=== PATIENT | female | born 1995 | race Caucasian/White ===

== ENCOUNTER → 2016-12-03 | Outpatient (CLI) | payer BC ==
[~2016-12-03] MED LIST: ALBU18002 INH; BCPILLS PO; FEXO1TAB46 PO; MOME200A INH
[2016-12-03 17:55] LABS: BLOOD UREA NITROGEN 9 mg/dl (7-18); CREATININE 0.86 mg/dl (0.60-1.20)
[2016-12-03 18:05] LABS: RHEUMATOID FACTOR < 10.0 U/mL (0-15)
[2016-12-03 18:17] LABS: LYME DISEASE AB IGG NEG (NEG); LYME DISEASE AB IGM EQUIVOCAL (NEG)
[2016-12-08 20:37] LABS: COLLECTION SAMPLE Venous; LEAD BLOOD <1 mcg/dL (<5); MICROSOMAL AB 43 IU/ML (<9); THYROXINE-BINDING GLOBULIN 25.3 mcg/mL (13.5-30.9); TSI <89 % baseline (<140)
[2016-12-09 23:57] LABS: 18KDIGG BAND NONREACTIVE (NONREACTIVE); 23KDIGG BAND NONREACTIVE (NONREACTIVE); 23KDIGM BAND NONREACTIVE (NONREACTIVE); 28KDIGG BAND NONREACTIVE (NONREACTIVE); 30KDIGG BAND NONREACTIVE (NONREACTIVE); 39KDIGG BAND NONREACTIVE (NONREACTIVE); 39KDIGM BAND NONREACTIVE (NONREACTIVE); 41KDIGG BAND REACTIVE (NONREACTIVE); 41KDIGM BAND NONREACTIVE (NONREACTIVE); 45KDIGG BAND NONREACTIVE (NONREACTIVE); 58KDIGG BAND NONREACTIVE (NONREACTIVE); 66KDIGG BAND REACTIVE (NONREACTIVE); 93KDIGG BAND NONREACTIVE (NONREACTIVE)
== END | disposition home or self-care (01) ==
LOC: C.LAB1850 16:05
PROVIDERS: ATTEND Otolaryngology
DX: Z01.812 Encounter for preprocedural laboratory examination (principal); D89.89 Other specified disorders involving the immune mechanism, not elsewhere classified; R49.0 Dysphonia; E03.9 Hypothyroidism, unspecified; A69.20 Lyme disease, unspecified; E78.2 Mixed hyperlipidemia; J38.01 Paralysis of vocal cords and larynx, unilateral; K21.0 Gastro-esophageal reflux disease with esophagitis; A52.8 Late syphilis, latent; E53.9 Vitamin B deficiency, unspecified

== ENCOUNTER → 2016-12-08 | Outpatient (CLI) | payer BC ==
--- NOTE | 2016-12-08 09:38 | DIAGNOSTIC IMAGING REPORT ---
THYROID ULTRASONOGRAPHY CLINICAL HISTORY: THYROID NEOPLASM, DYSPHONIA COMPARISON STUDY: No previous studies for comparison. FINDINGS: The right lobe of the thyroid measures 50 x 14 x 14 mm. The left lobe measures 45 x 13 x 13 mm. No focal thyroid masses were delineated. IMPRESSION: No thyroid nodules are visualized ultrasonographically. Electronically signed by: Edgardo Henao M.D. 12/08/2016 9:37 AM Dictated Date/Time: 12/08/2016 9:36 AM
== END | disposition home or self-care (01) ==
LOC: C.ULTR 09:20
PROVIDERS: ATTEND Otolaryngology
DX: R49.0 Dysphonia (principal); J38.01 Paralysis of vocal cords and larynx, unilateral; D44.0 Neoplasm of uncertain behavior of thyroid gland

== ENCOUNTER → 2016-12-09 | Outpatient (CLI) | payer BC ==
[2016-12-09 11:27] LABS: BLOOD UREA NITROGEN 8 mg/dl (7-18); CREATININE 0.97 mg/dl (0.60-1.20)
[2016-12-09 11:40] LABS: CHOLESTEROL 158 mg/dl (0-200); RHEUMATOID FACTOR < 10.0 U/mL (0-15); TRIGLYCERIDES 116 mg/dl (0-150)
[2016-12-09 12:06] LABS: LYME DISEASE AB IGG NEG (NEG)
[2016-12-09 13:22] LABS: LYME DISEASE AB IGM EQUIVOCAL (NEG)
[2016-12-11 06:36] LABS: COLLECTION SAMPLE Venous; LEAD BLOOD <1 mcg/dL (<5); MICROSOMAL AB 48 IU/ML (<9); THYROGLOBULIN 0.2 NG/ML (2.8-40.9)
[2016-12-15 17:24] LABS: 18KDIGG BAND NONREACTIVE (NONREACTIVE); 23KDIGG BAND NONREACTIVE (NONREACTIVE); 23KDIGM BAND NONREACTIVE (NONREACTIVE); 28KDIGG BAND NONREACTIVE (NONREACTIVE); 30KDIGG BAND NONREACTIVE (NONREACTIVE); 39KDIGG BAND NONREACTIVE (NONREACTIVE); 39KDIGM BAND NONREACTIVE (NONREACTIVE); 41KDIGG BAND REACTIVE (NONREACTIVE); 41KDIGM BAND NONREACTIVE (NONREACTIVE); 45KDIGG BAND NONREACTIVE (NONREACTIVE); 58KDIGG BAND NONREACTIVE (NONREACTIVE); 66KDIGG BAND REACTIVE (NONREACTIVE); 93KDIGG BAND NONREACTIVE (NONREACTIVE)
== END | disposition home or self-care (01) ==
LOC: C.LAB1850 09:47
PROVIDERS: ATTEND Otolaryngology
DX: D89.89 Other specified disorders involving the immune mechanism, not elsewhere classified (principal); R49.0 Dysphonia; E03.9 Hypothyroidism, unspecified; A69.20 Lyme disease, unspecified; E78.2 Mixed hyperlipidemia; J38.01 Paralysis of vocal cords and larynx, unilateral; Z01.812 Encounter for preprocedural laboratory examination; K21.0 Gastro-esophageal reflux disease with esophagitis; A52.8 Late syphilis, latent; E53.9 Vitamin B deficiency, unspecified

== ENCOUNTER → 2016-12-10 | Outpatient (CLI) | payer BC ==
[~2016-12-10] MED LIST changes: +GADAVIST IV PRN
--- NOTE | 2016-12-10 18:10 | DIAGNOSTIC IMAGING REPORT ---
MRI THE NECK WITHOUT A WITH GADOLINIUM CLINICAL HISTORY: THYROID NEOPLASM, DYSPHONIA focal cord mass COMPARISON STUDY: No previous studies for comparison. FINDINGS: Imaging was performed in the sagittal and axial planes. Imaging was performed before and after the administration of 6 cc of intravenous Gadavist. There are mildly prominent jugular digastric lymph nodes bilaterally. These measure up to 1 cm in short axis. There are mildly prominent tonsils. No salivary gland masses are visualized. No mucosal space masses are visualized. The reported vocal cord mass is not visualized on MRI imaging. Correlation with results of direct visualization is recommended. No thyroid masses are visualized. IMPRESSION: 1. No thyroid masses identified 2. No salivary gland masses identified 3. No mucosal space masses identified 4. Mildly prominent symmetric cervical lymph nodes likely reactive Electronically signed by: Edgardo Henao M.D. 12/10/2016 6:09 PM Dictated Date/Time: 12/10/2016 5:55 PM
--- NOTE | 2017-01-15 07:26 | CODING QUERY NO DIAGNOSIS ---
TREATMENT RENDERED WITHOUT A DIAGNOSIS To promote full compliance with coding requirements relating to patient care, physician participation is requested in all cases of collision repairer uncertainty. Please assist us with providing a diagnosis/symptom for the test(s) below: A diagnosis/symptom was not documented on your Order. A valid diagnosis/symptom is required to bill all insurances. Please remember that we are unable to code a diagnosis of rule out, probable, possible, questionable, or suspected. DOS: 12/10/16 Tests that require a diagnosis: * MRI SOFT TISSUE NECK COMBO DIAGNOSIS: Provider Signature: Date: Thank you Johana Lamb [employer] Once completed, please kindly fax back to [phone] For questions please call [phone]
== END | disposition home or self-care (01) ==
LOC: C.MRI 16:16
PROVIDERS: ATTEND Otolaryngology
DX: R49.0 Dysphonia (principal); J38.01 Paralysis of vocal cords and larynx, unilateral; J38.4 Edema of larynx

== ENCOUNTER → 2017-03-04 | Outpatient (CLI) | payer BC ==
[~2017-03-04] MED LIST changes: -GADAVIST IV PRN
--- NOTE | 2017-03-04 13:10 | Discharge Instructions ---
Discharge Instructions Procedure Procedure Date: Mar 04, 2017. Reason for visit: Right Mass. Discharge Discharge Date: Mar 04, 2017. Discharge Diagnosis: status post breast biopsy Instructions Activity Recommendations: Additional Limitations (see below) Return to School/Work: no limitations Recommended Home Diet: No Limitations Provider Instructions: ACTIVITY RECOMMENDATIONS: * No lifting, pushing, pulling or exercising the affected side for three days. RETURN TO SCHOOL/WORK: * You may return to work/school after the procedure, but do not perform any strenuous activities for 24 to 48 hours. MEDICATIONS: * Tylenol (two 325 mg) every four to six hours if needed for mild pain (if not allergic to Tylenol). DIET: * Resume previous diet. SPECIAL CARE INSTRUCTIONS: * Keep biopsy site dry for 24 hours. May shower after 24 hours, but do not soak (bathe) incision. * May remove Tegaderm (plastic patch) tomorrow AFTER showering. * Leave the steri-strips on for one week. Allow the steri-strips to fall off by themselves. If not off after one week, you may remove them. You may place a Bandaid crosswise over the strips, if desired. * Apply ice 10 minutes on and 10 minutes off as needed. * Wear a bra at bedtime to sleep more comfortably for 2-3 days. * Your referring physician should have the results after approximately 5 to 7 business days. * Call for unusual bleeding, fever, drainage, etc or if you have any questions call during normal business hours or after hours call Dr Ordonez, . FOLLOW UP VISIT: Follow-up with Referring Physician as scheduled. Allergies Coded Allergies: Dairy (Verified Allergy, Severe, ANAPHYLAXIS-HIVES, 03/01/16) Egg (Verified Allergy, Severe, ANAPHYLAXIS-HIVES, 03/01/16) Nut Tree (Verified Allergy, Severe, ANAPHYLAXIS-HIVES, 03/01/16) Anel Curtis Recommendations: Call your doctor if: * Temperature above 101 degrees * Pain not relieved by pain medicine ordered * There is increased drainage or redness from any incision * You have any unanswered questions or concerns. Your Doctors Instructions noted above were prepared by provider Lesvia Ordonez. Patient Signature Section: Patient Instructions Signature Page Lesvia Benedict Patient (or Guardian) Signature/Date: I have read and understand the instructions given to me by my caregivers. Caregiver/RN/Doctor Signature/Date: The above-named patient and/or guardian has received patient instructions on this date. + Original Patient Signature Page (only) stays with chart. Please make copy for patient.
--- NOTE | 2017-03-04 14:33 | MAMMOGRAPHY REPORT ---
ULTRASOUND GUIDED BIOPSY RIGHT BREAST: 03/04/2017 CLINICAL HISTORY: Right 7:00 breast mass. PATIENT CONSENT: The procedure, risks and benefits were discussed with the patient and informed writt en consent was obtained. A timeout was performed immediately prior to the procedure. PROCEDURE DESCRIPTION: With ultrasound guidance, aseptic technique, and lidocaine as the local anesth etic (1% lidocaine to anesthetize the skin and 1% lidocaine with epinephrine to anesthetize the deepe r tissues), the mass of concern in the right 7:00 breast was sampled 4 times with a 14-gauge Achieve biopsy needle. Immediately thereafter, with ultrasound guidance, aseptic technique, and lidocaine as the local anesthetic, a metallic localizer clip was placed into the mass. Direct pressure was appli ed to the site immediately post procedure and hemostasis was achieved. The patient tolerated the pro cedure without complication. She was given wound care instructions. The specimens were sent to patho logy for analysis. COMPARISON: Comparison is made to exam dated: 02/23/2017 ultrasound - [facility]. IMPRESSION: ULTRASOUND GUIDED BIOPSY Ultrasound guided core needle biopsy of the right 7:00 breast mass, with clip placement. The patient will receive pathology results from her referring provider. Lesvia Ordonez M.D. /:03/04/2017 13:12:19 Automotive Painter: Debbie NORTH)(Claudia), [facility]
== END | disposition home or self-care (01) ==
LOC: C.MAMM 12:32
PROVIDERS: ATTEND Physician Assistant Medical
DX: D24.1 Benign neoplasm of right breast (principal)